=== PATIENT | female | born 1955 | race Caucasian/White ===

== ENCOUNTER 2017-06-03 17:16 | Emergency (ER) | payer MEDICAID ==
[~2017-06-03] VITALS: Ht 154.9 cm; Wt 55.0 kg
[~2017-06-03 17:16] MED LIST: LEVO150T8 PO; LEVO500T89 PO; MALA59LO4 TOP; OMEP20TA23 PO; PIP1KIT5 TP
[2017-06-03] MEDS ORDERED: GUAI237S46 PO (18:41)
[2017-06-03 18:45] VITALS: BP 95/69
== END 2017-06-03 18:46 | disposition home or self-care (01) ==
LOC: ER 17:16
DX: J44.1 Chronic obstructive pulmonary disease with (acute) exacerbation (principal); E11.9 Type 2 diabetes mellitus without complications; E78.00 Pure hypercholesterolemia, unspecified; G89.29 Other chronic pain; Z88.1 Allergy status to other antibiotic agents; Z88.2 Allergy status to sulfonamides; Z90.710 Acquired absence of both cervix and uterus; Z98.51 Tubal ligation status; Z98.890 Other specified postprocedural states
CPT/HCPCS: 71046; 99284

== ENCOUNTER 2017-06-16 19:07 | Emergency (ER) | payer MEDICAID ==
[~2017-06-16] VITALS: Ht 154.9 cm; Wt 57.3 kg
[2017-06-16 19:50] LABS: BASOPHILS # (AUTO) 0.2 X10'3 (0-0.2); BASOPHILS % (AUTO) 2.2 % (0-1); EOSINOPHILS # (AUTO) 0.2 X10'3 (0-0.9); EOSINOPHILS % (AUTO) 2.7 % (0-6); HEMATOCRIT 42.3 % (35.0-45.0); HEMOGLOBIN 14.8 g/dl (12.0-16.0); LYMPHOCYTES # (AUTO) 2.2 X10'3 (1.1-4.8); LYMPHOCYTES % (AUTO) 25.8 % (21-51); MEAN CORPUSCULAR HEMOGLOBIN 33.4 PG (27.0-31.0); MEAN CORPUSCULAR VOLUME 95.7 FL (78-98); MEAN PLATELET VOLUME 7.5 FL (7.4-10.4); MONOCYTES # (AUTO) 0.7 X10'3 (0-0.9); MONOCYTES % (AUTO) 7.9 % (2-12); NEUTROPHILS # (AUTO) 5.3 X10'3 (1.8-7.7); NEUTROPHILS % (AUTO) 61.4 % (42-75); PLATELET COUNT 259 X10'3 (140-440); RED BLOOD COUNT 4.42 X10'6 (4.20-5.60); RED CELL DISTRIBUTION WIDTH 14.1 % (11.5-14.5); WHITE BLOOD COUNT 8.7 X10'3 (4.5-11.0)
[2017-06-16 20:14] LABS: ALANINE AMINOTRANSFERASE 26 U/L (12-78); ALBUMIN 4.1 G/DL (3.4-5.0); ALBUMIN/GLOBULIN RATIO 1.2 (1.1-1.5); ALKALINE PHOSPHATASE 85 IU/L (46-116); ANION GAP 9 (8-16); ASPARTATE AMINO TRANSFERASE 19 U/L (10-37); BILIRUBIN,TOTAL 1.1 MG/DL (0.1-1.0); BLOOD UREA NITROGEN 16 MG/DL (7-18); BUN/CREATININE RATIO 17.8 (6.6-38.0); CALCIUM 9.2 MG/DL (8.5-10.1); CHLORIDE 103 MMOL/L (99-107); ETHANOL < 0.010 GM/DL (0.0-0.010); GLUCOSE 87 MG/DL (70-104); POTASSIUM 3.6 MMOL/L (3.5-5.1); SODIUM 141 MMOL/L (135-145); TOTAL CARBON DIOXIDE 28.8 MMOL/L (24-32); TOTAL PROTEIN 7.4 G/DL (6.4-8.2); eGFR 64 ML/MIN
[2017-06-16] MEDS ORDERED: levoTHYROXINE 75mcg tablet PO STA (21:35)
[2017-06-16 23:40] LABS: URINE HCG NEGATIVE (NEG)
[2017-06-16 23:44] LABS: CLARITY,URINE CLEAR (Clear); COLOR,URINE YELLOW (Yellow); GLUCOSE, URINE NEGATIVE (Neg); KETONES,URINE NEGATIVE (Neg); LEUKOCYTE ESTERASE ,URINE SMALL (Neg); NITRITES, URINE NEGATIVE (Neg); OCCULT BLOOD,URINE TRACE-LYSED (Neg); PROTEIN,URINE NEGATIVE (Neg); UROBILINOGEN,URINE 0.2 E.U/dL (0.2-1.0)
[2017-06-16 23:45] LABS: UA COLLECTION TYPE CLN CATCH MIDSTREAM
[2017-06-16 23:51] LABS: URINE AMPHETAMINE SCREEN POSITIVE (Neg); URINE BARBITUATE SCREEN NEGATIVE (Neg); URINE BENZODIAZEPINES SCREEN NEGATIVE (Neg); URINE CANNABINOID SCREEN NEGATIVE (Neg); URINE COCAINE SCREEN NEGATIVE (Neg); URINE METHADONE SCREEN NEGATIVE (Neg); URINE OPIATE SCREEN NEGATIVE (Neg); URINE PHENCYCLIDINE SCREEN NEGATIVE (Neg)
[2017-06-16 23:57] LABS: SQUAMOUS EPITHELIAL CELL,UR MODERATE /LPF (FEW)
[2017-06-16 23:58] LABS: BACTERIA,URINE FEW /HPF (Neg); RBC,URINE 0-2 /HPF (0-2); TRANSITIONAL EPI CELLS,URINE FEW /HPF
[2017-06-17] MEDS ORDERED: LEVO150T PO (01:43)
[2017-06-17 09:46] VITALS: BP 107/69
== END 2017-06-17 09:53 | disposition home or self-care (01) ==
LOC: ER 19:07
DX: F32.9 Major depressive disorder, single episode, unspecified (principal); E11.9 Type 2 diabetes mellitus without complications; E78.00 Pure hypercholesterolemia, unspecified; J44.9 Chronic obstructive pulmonary disease, unspecified; Z88.1 Allergy status to other antibiotic agents; Z88.2 Allergy status to sulfonamides; F17.210 Nicotine dependence, cigarettes, uncomplicated
CPT/HCPCS: 36415; 80053; 80305; 80320; 81001; 81025; 82948; 84443; 85025; 93005; 99285

== ENCOUNTER 2017-10-14 14:21 | Inpatient (IN) | payer MEDICAID ==
[~2017-10-14] VITALS: Ht 154.9 cm; Wt 56.8 kg
[~2017-10-14 14:21] MED LIST changes: +LEVO150T PO; -LEVO500T89 PO; -MALA59LO4 TOP; -OMEP20TA23 PO; -PIP1KIT5 TP
[2017-10-14] MEDS ORDERED: morphine 4 MG/ML inj SYRINge IV ONE (14:35)
[2017-10-14] MEDS ORDERED: ondansetron/PF 4mg/2ml inj IV ONE (14:35)
[2017-10-14 15:13] LABS: COLOR,URINE YELLOW (Yellow); GLUCOSE, URINE NEGATIVE (Neg); KETONES,URINE TRACE mg/dl (Neg); LEUKOCYTE ESTERASE ,URINE SMALL (Neg); NITRITES, URINE NEGATIVE (Neg); OCCULT BLOOD,URINE NEGATIVE (Neg); PROTEIN,URINE NEGATIVE (Neg)
[2017-10-14 15:15] LABS: HEMATOCRIT 44.5 % (35.0-45.0); HEMOGLOBIN 15.2 g/dl (12.0-16.0); MEAN CORPUSCULAR HEMOGLOBIN 33.3 PG (27.0-31.0); MEAN CORPUSCULAR HGB CONC 34.2 % (33.0-36.5); MEAN CORPUSCULAR VOLUME 97.3 FL (78-98); MEAN PLATELET VOLUME 7.8 FL (7.4-10.4); PLATELET COUNT 301 X10'3 (140-440); RED BLOOD COUNT 4.57 X10'6 (4.20-5.60); RED CELL DISTRIBUTION WIDTH 14.1 % (11.5-14.5)
[2017-10-14 15:18] LABS: WHITE BLOOD COUNT 25.4 X10'3 (4.5-11.0)
[2017-10-14 15:20] LABS: CLARITY,URINE SLIGHTLY CLOUDY (Clear); UA COLLECTION TYPE CLN CATCH MIDSTREAM
[2017-10-14 15:22] LABS: BACTERIA,URINE 2+ /HPF (Neg); HYALINE CASTS 0-3 /LPF (NEGATIVE); MUCUS STRANDS FEW /LPF (Neg); RBC,URINE NONE SEEN /HPF (0-2); SQUAMOUS EPITHELIAL CELL,UR FEW /LPF (FEW); WBC,URINE 0-4 /HPF (0-4)
[2017-10-14 15:29] LABS: TOTAL CELLS COUNTED 100
[2017-10-14 15:30] LABS: PLATELET ESTIMATE NORMAL
[2017-10-14] MEDS ORDERED: normal saline 1000ML IV soln IV ONE (15:30)
[2017-10-14 15:33] LABS: ALANINE AMINOTRANSFERASE 23 U/L (12-78); ALBUMIN 3.2 G/DL (3.4-5.0); ALBUMIN/GLOBULIN RATIO 0.9 (1.1-1.5); ALKALINE PHOSPHATASE 105 IU/L (46-116); ANION GAP 7 (8-16); ASPARTATE AMINO TRANSFERASE 17 U/L (10-37); BILIRUBIN,TOTAL 0.7 MG/DL (0.1-1.0); BLOOD UREA NITROGEN 14 MG/DL (7-18); BUN/CREATININE RATIO 18.4 (6.6-38.0); CALCIUM 8.3 MG/DL (8.5-10.1); CHLORIDE 109 MMOL/L (99-107); CREATININE 0.76 MG/DL (0.40-0.90); GLUCOSE 108 MG/DL (70-104); POTASSIUM 3.5 MMOL/L (3.5-5.1); SODIUM 146 MMOL/L (135-145); TOTAL CARBON DIOXIDE 29.7 MMOL/L (24-32); TOTAL PROTEIN 6.9 G/DL (6.4-8.2); eGFR 77 ML/MIN
[2017-10-14] MEDS ORDERED: iohexol 300mg/ml 100ml inj. ONE (15:49)
[2017-10-14 16:11] LABS: INR 0.9 INR; PARTIAL THROMBOPLASTIN TIME 26 SECONDS (22-32); PROTHROMBIN TIME 9.8 SECONDS (9.0-12.0)
[2017-10-14] MEDS ORDERED: acetaminophen 325mg tablet PO PRN ×2 (18:00)
[2017-10-14] MEDS ORDERED: acetaminophen 650mg rectal suppository RC PRN (18:00)
[2017-10-14] MEDS ORDERED: bisacodyl 10mg suppository rectal RC PRN (18:00)
[2017-10-14] MEDS ORDERED: diphenhydrAMINE 25mg capsule PO PRN (18:00)
[2017-10-14] MEDS ORDERED: diphenhydrAMINE 50 mg/ml inj IV PRN (18:00)
[2017-10-14] MEDS ORDERED: mag hydrox/Alum hydrox/simeth 30ml oral suspension PO PRN (18:00)
[2017-10-14] MEDS ORDERED: HYDROmorphone inj. 0.5 MG/0.5 ML DISP.SYRIN IV PRN ×2 (18:00)
[2017-10-14] MEDS ORDERED: HYDROcodone/acetaminophen 5mg/325mg tablet PO PRN (18:00)
[2017-10-14] MEDS ORDERED: magnesium hydroxide 30ml (MOM) UD suspension PO PRN (18:00)
[2017-10-14] MEDS ORDERED: morphine 4 MG/ML inj SYRINge IV PRN (18:00)
[2017-10-14] MEDS: morphine 4 MG/ML inj SYRINge IV PRN (18:12)
[2017-10-14 18:26] LABS: HEMOGLOBIN A1C 5.8 % (4.5-6.2)
[2017-10-14] MEDS ORDERED: normal saline 1000ml 1,000 ML IVB ONE (18:27)
[2017-10-14 18:33] LABS: MAGNESIUM 1.6 MG/DL (1.5-2.4); PHOSPHORUS 3.9 MG/DL (2.3-4.5)
[2017-10-14 18:40] LABS: AMYLASE 40 U/L (25-115); LIPASE 83 U/L (73-393)
[2017-10-14] MEDS: potassium Cl 20mEq in NS 1,000 ML IV SCH (19:14)
[2017-10-14] MEDS: docusate sod 100mg capsule PO SCH (20:00)
[2017-10-14] MEDS: CefTRIAXone/D5W-Rocephin 1gm 50 ML IV SCH (20:15)
[2017-10-14] MEDS: pantoprazole 40 MG vial IV SCH (20:16)
[2017-10-14] MEDS: heparin, porcine 5000 units/ml vial SQ SCH (20:16)
[2017-10-14] MEDS: ondansetron/PF 4mg/2ml inj IV PRN (20:16)
[2017-10-14] MEDS ORDERED: temazepam 15mg capsule PO PRN (21:00)
[2017-10-14 21:15] VITALS: BP 99/58
[2017-10-14 21:19] LABS: URINE AMPHETAMINE SCREEN NEGATIVE (Neg); URINE BARBITUATE SCREEN NEGATIVE (Neg); URINE BENZODIAZEPINES SCREEN NEGATIVE (Neg); URINE CANNABINOID SCREEN NEGATIVE (Neg); URINE COCAINE SCREEN NEGATIVE (Neg); URINE METHADONE SCREEN NEGATIVE (Neg); URINE OPIATE SCREEN POSITIVE (Neg); URINE PHENCYCLIDINE SCREEN NEGATIVE (Neg)
[2017-10-14] MEDS: metoclopramide 5 mg/ml inj IV PRN (21:59)
[2017-10-14 22:12] LABS: OCCULT BLOOD STOOL NEGATIVE (Neg)
[2017-10-14 23:00] VITALS: BP 108/62
[2017-10-14] MEDS: HYDROcodone/acetaminophen 10/325mg tab PO PRN (23:49)
[2017-10-15 03:00] VITALS: BP 92/53
[2017-10-15] MEDS: ondansetron/PF 4mg/2ml inj IV PRN ×2 (03:12→13:49)
[2017-10-15] MEDS: potassium Cl 20mEq in NS 1,000 ML IV SCH ×3 (03:57→16:11)
[2017-10-15] MEDS ORDERED: potassium Cl 20mEq in NS 1,000 ML IV ONE (04:50)
[2017-10-15] MEDS: HYDROcodone/acetaminophen 10/325mg tab PO PRN ×4 (05:59→20:10)
[2017-10-15 06:00] VITALS: BP 88/58
[2017-10-15] MEDS: metoclopramide 5 mg/ml inj IV PRN ×2 (06:34→20:29)
[2017-10-15] MEDS: levoTHYROXINE 75mcg tablet PO SCH (06:35)
[2017-10-15 07:13] LABS: BASOPHILS % (AUTO) 0.4 % (0-1); EOSINOPHILS # (AUTO) 0.2 X10'3 (0-0.9); EOSINOPHILS % (AUTO) 2.1 % (0-6); HEMATOCRIT 44.2 % (35.0-45.0); LYMPHOCYTES # (AUTO) 1.9 X10'3 (1.1-4.8); LYMPHOCYTES % (AUTO) 17.1 % (21-51); MEAN CORPUSCULAR HEMOGLOBIN 33.1 PG (27.0-31.0); MEAN CORPUSCULAR HGB CONC 33.9 % (33.0-36.5); MEAN CORPUSCULAR VOLUME 97.6 FL (78-98); MONOCYTES # (AUTO) 0.8 X10'3 (0-0.9); NEUTROPHILS # (AUTO) 8.3 X10'3 (1.8-7.7); NEUTROPHILS % (AUTO) 73.4 % (42-75); PLATELET COUNT 252 X10'3 (140-440); RED BLOOD COUNT 4.53 X10'6 (4.20-5.60); WHITE BLOOD COUNT 11.3 X10'3 (4.5-11.0)
[2017-10-15 07:32] LABS: ALANINE AMINOTRANSFERASE 15 U/L (12-78); ALBUMIN 2.6 G/DL (3.4-5.0); ALBUMIN/GLOBULIN RATIO 0.8 (1.1-1.5); ALKALINE PHOSPHATASE 69 IU/L (46-116); ANION GAP 10 (8-16); ASPARTATE AMINO TRANSFERASE 15 U/L (10-37); BILIRUBIN,TOTAL 0.5 MG/DL (0.1-1.0); BLOOD UREA NITROGEN 11 MG/DL (7-18); BUN/CREATININE RATIO 19.3 (6.6-38.0); CALCIUM 6.7 MG/DL (8.5-10.1); CHLORIDE 112 MMOL/L (99-107); CHOL/HDL RATIO 4.2 (0.00-4.99); CHOLESTEROL 139 MG/DL (0-200); CREATININE 0.57 MG/DL (0.40-0.90); GLUCOSE 110 MG/DL (70-104); HDL CHOLESTEROL 33 MG/DL (35-60); LDL CHOLESTEROL 72 MG/DL (50-100); POTASSIUM 3.8 MMOL/L (3.5-5.1); SODIUM 144 MMOL/L (135-145); TOTAL CARBON DIOXIDE 22.3 MMOL/L (24-32); TOTAL PROTEIN 5.7 G/DL (6.4-8.2); TRIGLYCERIDES 248 MG/DL (20-135); eGFR > 90 ML/MIN
[2017-10-15] MEDS: pantoprazole 40 MG vial IV SCH ×2 (07:53→20:03)
[2017-10-15] MEDS: CefTRIAXone/D5W-Rocephin 1gm 50 ML IV SCH ×2 (07:54→20:03)
[2017-10-15] MEDS: docusate sod 100mg capsule PO SCH ×2 (07:54→20:00)
[2017-10-15] MEDS: heparin, porcine 5000 units/ml vial SQ SCH ×2 (07:55→20:11)
[2017-10-15 11:00] VITALS: BP 97/60
[2017-10-15 11:15] LABS: C DIFF ANTIGEN NEGATIVE (NEGATIVE); C DIFF SPECIMEN=DIARRHEA? ACCEPTABLE; C DIFFICILE TOXINS A&B NEGATIVE (Neg)
[2017-10-15] MEDS: nicotine 21mg patch - 24 hr TD SCH (13:40)
[2017-10-15 15:00] VITALS: BP 94/53
[2017-10-15] MEDS: calcium carbonate/vitamin D3 tablet PO SCH (17:46)
[2017-10-15 19:00] VITALS: BP 95/49
[2017-10-15] MEDS: lactobacillus rhamnosus 10,000 MMU CELLS/CAPSULE PO SCH (20:09)
[2017-10-15] MEDS ORDERED: diphenoxylate/atropine tablet (Lomotil) PO PRN (22:45)
[2017-10-15 23:00] VITALS: BP 104/56
[2017-10-16] MEDS: chloestyramine/aspartame 4gm packet PO SCH ×2 (00:42→06:02)
[2017-10-16] MEDS: HYDROcodone/acetaminophen 10/325mg tab PO PRN (01:42)
[2017-10-16] MEDS: potassium Cl 20mEq in NS 1,000 ML IV SCH (01:44)
[2017-10-16] MEDS: ondansetron/PF 4mg/2ml inj IV PRN (02:56)
[2017-10-16 03:00] VITALS: BP 91/56
[2017-10-16] MEDS: morphine 4 MG/ML inj SYRINge IV PRN (03:54)
[2017-10-16] MEDS: metoclopramide 5 mg/ml inj IV PRN (04:00)
[2017-10-16 05:57] LABS: BASOPHILS # (AUTO) 0.1 X10'3 (0-0.2); BASOPHILS % (AUTO) 0.8 % (0-1); EOSINOPHILS # (AUTO) 0.2 X10'3 (0-0.9); HEMATOCRIT 36.9 % (35.0-45.0); HEMOGLOBIN 12.6 g/dl (12.0-16.0); LYMPHOCYTES # (AUTO) 0.8 X10'3 (1.1-4.8); LYMPHOCYTES % (AUTO) 7.9 % (21-51); MEAN CORPUSCULAR HEMOGLOBIN 33.3 PG (27.0-31.0); MEAN CORPUSCULAR HGB CONC 34.2 % (33.0-36.5); MEAN CORPUSCULAR VOLUME 97.6 FL (78-98); MEAN PLATELET VOLUME 7.9 FL (7.4-10.4); MONOCYTES # (AUTO) 0.8 X10'3 (0-0.9); MONOCYTES % (AUTO) 7.6 % (2-12); NEUTROPHILS # (AUTO) 8.1 X10'3 (1.8-7.7); NEUTROPHILS % (AUTO) 81.7 % (42-75); PLATELET COUNT 221 X10'3 (140-440); RED BLOOD COUNT 3.78 X10'6 (4.20-5.60); RED CELL DISTRIBUTION WIDTH 13.9 % (11.5-14.5); WHITE BLOOD COUNT 9.9 X10'3 (4.5-11.0)
[2017-10-16 06:29] LABS: ALANINE AMINOTRANSFERASE 15 U/L (12-78); ALBUMIN 2.4 G/DL (3.4-5.0); ALBUMIN/GLOBULIN RATIO 0.8 (1.1-1.5); ALKALINE PHOSPHATASE 64 IU/L (46-116); ANION GAP 12 (8-16); ASPARTATE AMINO TRANSFERASE 15 U/L (10-37); BILIRUBIN,TOTAL 0.3 MG/DL (0.1-1.0); BLOOD UREA NITROGEN 7 MG/DL (7-18); BUN/CREATININE RATIO 13.7 (6.6-38.0); CALCIUM 7.1 MG/DL (8.5-10.1); CHLORIDE 112 MMOL/L (99-107); CREATININE 0.51 MG/DL (0.40-0.90); GLUCOSE 96 MG/DL (70-104); POTASSIUM 3.6 MMOL/L (3.5-5.1); SODIUM 143 MMOL/L (135-145); TOTAL CARBON DIOXIDE 19.4 MMOL/L (24-32); TOTAL PROTEIN 5.3 G/DL (6.4-8.2); eGFR > 90 ML/MIN
[2017-10-16 07:22] VITALS: BP 84/41
[2017-10-16] MEDS: calcium carbonate/vitamin D3 tablet PO SCH (07:40)
[2017-10-16] MEDS: levoTHYROXINE 75mcg tablet PO SCH (07:40)
[2017-10-16] MEDS: lactobacillus rhamnosus 10,000 MMU CELLS/CAPSULE PO SCH (07:40)
[2017-10-16] MEDS: pantoprazole 40 MG vial IV SCH (07:40)
[2017-10-16] MEDS: nicotine 21mg patch - 24 hr TD SCH (07:40)
[2017-10-16] MEDS: CefTRIAXone/D5W-Rocephin 1gm 50 ML IV SCH (07:40)
[2017-10-16] MEDS: heparin, porcine 5000 units/ml vial SQ SCH (07:41)
[2017-10-16] MEDS: docusate sod 100mg capsule PO SCH (07:41)
[2017-10-16] MEDS ORDERED: normal saline 1000ml 1,000 ML IVB ONE (08:39)
[2017-10-16] MEDS ORDERED: HYDR50CA PO (09:49)
[2017-10-16] MEDS ORDERED: ACET-2119 PO (09:49)
[2017-10-16] MEDS ORDERED: PROM25TA14 PO (09:49)
[2017-10-16 11:00] VITALS: BP 100/56
[2017-10-16] MEDS ORDERED: chloestyramine/aspartame 4gm packet PO SCH (11:00)
== END 2017-10-16 14:05 | disposition home or self-care (01) | DRG 720 ==
LOC: ER 14:22 → ED HOLD 17:57 → EDBEDREQ 19:42 → PCU 3S 21:17
PROVIDERS: ADMIT Family Medicine; ATTEND Family Medicine
DX: A41.9 Sepsis, unspecified organism (principal); N39.0 Urinary tract infection, site not specified; J44.9 Chronic obstructive pulmonary disease, unspecified; R19.7 Diarrhea, unspecified; E11.9 Type 2 diabetes mellitus without complications; E78.00 Pure hypercholesterolemia, unspecified; E86.0 Dehydration; F17.210 Nicotine dependence, cigarettes, uncomplicated; K31.9 Disease of stomach and duodenum, unspecified; K40.90 Unilateral inguinal hernia, without obstruction or gangrene, not specified as recurrent; F32.9 Major depressive disorder, single episode, unspecified; G89.29 Other chronic pain; M19.90 Unspecified osteoarthritis, unspecified site; M54.9 Dorsalgia, unspecified; Z88.2 Allergy status to sulfonamides; Z90.710 Acquired absence of both cervix and uterus; Z88.1 Allergy status to other antibiotic agents; Z88.8 Allergy status to other drugs, medicaments and biological substances; Z79.899 Other long term (current) drug therapy; Z98.51 Tubal ligation status; Z79.4 Long term (current) use of insulin
CPT/HCPCS: 36415; 71045; 74177; 80053; 80061; 80305; 81001; 82150; 82272; 82948; 83036; 83605; 83690; 83735; 83880; 84100; 84145; 84443; 85025; 85610; 85730; 87040; 87045; 87046; 87070; 87088; 87324; 87449; 89055; 96361; 96374; 96375; 99285; A4620; A6250; C9113; J0696; J1644; J2270; J2405; J2765; J7030; Q9967

== ENCOUNTER 2017-10-22 22:37 | Emergency (ER) | payer MEDICAID ==
[~2017-10-22] VITALS: Ht 154.9 cm; Wt 59.1 kg
[~2017-10-22 22:37] MED LIST changes: +ACET-2119 PO; +HYDR50CA PO; -LEVO150T PO; +PROM25TA14 PO
[2017-10-23 01:48] LABS: ALANINE AMINOTRANSFERASE 32 U/L (12-78); ALBUMIN 2.6 G/DL (3.4-5.0); ALBUMIN/GLOBULIN RATIO 0.9 (1.1-1.5); ALKALINE PHOSPHATASE 74 IU/L (46-116); ANION GAP 11 (8-16); ASPARTATE AMINO TRANSFERASE 42 U/L (10-37); BILIRUBIN,TOTAL 0.5 MG/DL (0.1-1.0); BLOOD UREA NITROGEN 11 MG/DL (7-18); BUN/CREATININE RATIO 15.3 (6.6-38.0); CALCIUM 7.7 MG/DL (8.5-10.1); CHLORIDE 111 MMOL/L (99-107); CREATININE 0.72 MG/DL (0.40-0.90); GLUCOSE 76 MG/DL (70-104); MAGNESIUM 1.6 MG/DL (1.5-2.4); SODIUM 148 MMOL/L (135-145); TOTAL PROTEIN 5.5 G/DL (6.4-8.2); eGFR 82 ML/MIN
[2017-10-23 01:50] LABS: POTASSIUM 2.8 MMOL/L (3.5-5.1)
[2017-10-23 01:51] LABS: BASOPHILS # (AUTO) 0.2 X10'3 (0-0.2); BASOPHILS % (AUTO) 1.6 % (0-1); EOSINOPHILS # (AUTO) 0.6 X10'3 (0-0.9); EOSINOPHILS % (AUTO) 5.6 % (0-6); HEMATOCRIT 40.1 % (35.0-45.0); HEMOGLOBIN 13.5 g/dl (12.0-16.0); LYMPHOCYTES # (AUTO) 2.5 X10'3 (1.1-4.8); LYMPHOCYTES % (AUTO) 24.9 % (21-51); MEAN CORPUSCULAR HGB CONC 33.7 % (33.0-36.5); MEAN CORPUSCULAR VOLUME 97.8 FL (78-98); MEAN PLATELET VOLUME 7.8 FL (7.4-10.4); MONOCYTES # (AUTO) 0.7 X10'3 (0-0.9); MONOCYTES % (AUTO) 6.9 % (2-12); RED CELL DISTRIBUTION WIDTH 14.2 % (11.5-14.5); WHITE BLOOD COUNT 9.9 X10'3 (4.5-11.0)
[2017-10-23 02:17] LABS: PLATELET COUNT 216 X10'3 (140-440)
[2017-10-23] MEDS ORDERED: potassium Cl 20 mEq SR tablet PO STA (02:17)
[2017-10-23] MEDS ORDERED: POTA20TA19 PO (02:32)
[2017-10-23] MEDS ORDERED: HYDR25TA4 PO (02:32)
[2017-10-23 02:45] VITALS: BP 118/68
[2017-10-23] MEDS ORDERED: LEVO150T PO (03:16)
== END 2017-10-23 02:49 | disposition home or self-care (01) ==
LOC: ER 22:37
DX: R60.0 Localized edema (principal); E78.00 Pure hypercholesterolemia, unspecified; J44.9 Chronic obstructive pulmonary disease, unspecified; E11.9 Type 2 diabetes mellitus without complications; E03.9 Hypothyroidism, unspecified; F17.200 Nicotine dependence, unspecified, uncomplicated; F32.9 Major depressive disorder, single episode, unspecified; M19.90 Unspecified osteoarthritis, unspecified site; L40.9 Psoriasis, unspecified; Z90.710 Acquired absence of both cervix and uterus; Z88.1 Allergy status to other antibiotic agents; Z88.2 Allergy status to sulfonamides; Z79.2 Long term (current) use of antibiotics; Z79.899 Other long term (current) drug therapy
CPT/HCPCS: 36415; 71045; 80053; 83735; 83880; 84484; 85025; 93005; 99285

== ENCOUNTER 2018-02-13 13:44 | Emergency (ER) | payer MEDICAID ==
[~2018-02-13] VITALS: Ht 154.9 cm; Wt 57.0 kg
[~2018-02-13 13:44] MED LIST changes: +HYDR25TA4 PO; +LEVO150T PO
[2018-02-13 14:00] VITALS: BP 106/61
[2018-02-13] MEDS ORDERED: AZIT-72 PO (14:44)
[2018-02-13] MEDS ORDERED: ALBU2.5V12 NEB (14:44)
[2018-02-13] MEDS ORDERED: PRED20TA PO (14:44)
[2018-02-13] MEDS ORDERED: BENZ-16 PO (14:46)
== END 2018-02-13 15:09 | disposition home or self-care (01) ==
LOC: ER 13:44
DX: J20.9 Acute bronchitis, unspecified (principal); J44.9 Chronic obstructive pulmonary disease, unspecified; E78.00 Pure hypercholesterolemia, unspecified; E11.9 Type 2 diabetes mellitus without complications; E03.9 Hypothyroidism, unspecified; M19.90 Unspecified osteoarthritis, unspecified site; G89.29 Other chronic pain; Z90.710 Acquired absence of both cervix and uterus; Z98.51 Tubal ligation status; Z98.890 Other specified postprocedural states; Z88.2 Allergy status to sulfonamides; Z88.1 Allergy status to other antibiotic agents; Z79.2 Long term (current) use of antibiotics; Z79.899 Other long term (current) drug therapy
CPT/HCPCS: 71046; 93005; 99284

== ENCOUNTER 2018-06-06 13:53 | Inpatient (IN) | payer MEDICAID | END 2018-06-10 14:50 | disposition home or self-care (01) | LOC: SUR 3N 06-07 04:30 → ER 13:53 → ED HOLD 15:49 ==

== ENCOUNTER 2019-09-29 11:13 | Day surgery (SDC) | payer MEDICAID ==
[~2019-09-29] VITALS: Ht 154.9 cm; Wt 60.1 kg
[~2019-09-29 11:13] MED LIST changes: -ACET-2119 PO; +ALBU18HF2 INH; +ALBU2.5V12 NEB; -HYDR25TA4 PO; -HYDR50CA PO; -LEVO150T PO; +LEVO750T46 PO; +PANT40TA4 PO; -PROM25TA14 PO; +SERT-153 PO; +ZOLP5TAB2 PO
[2019-09-29] MEDS ORDERED: normal saline 1000ml 1,000 ML IV ONE (11:30)
[2019-09-29 11:42] VITALS: BP 108/47
[2019-09-29] MEDS ORDERED: heparin sodium, porcine/PF 100unit/ml 5ML syringe ONE (11:59)
[2019-09-29] MEDS ORDERED: fentaNYL/PF 50MCG/1 ML 2ML syringe ONE (12:00)
[2019-09-29] MEDS ORDERED: midazolam 2 mg/2 ml injection ONE (12:00)
[2019-09-29] MEDS ORDERED: LIDOcaine 1%/PF 5ML 10 MG/ML VIAL ONE (12:00)
[2019-09-29 12:10] LABS: BASOPHILS % (AUTO) 0.1 % (0-1); EOSINOPHILS # (AUTO) 0.2 X10'3 (0-0.9); EOSINOPHILS % (AUTO) 10.3 % (0-6); HEMATOCRIT 32.4 % (35.0-45.0); HEMOGLOBIN 10.7 g/dl (12.0-16.0); LYMPHOCYTES # (AUTO) 1.3 X10'3 (1.1-4.8); LYMPHOCYTES % (AUTO) 57.7 % (21-51); MEAN CORPUSCULAR HEMOGLOBIN 32.7 PG (27.0-31.0); MEAN CORPUSCULAR VOLUME 99.2 FL (78-98); MEAN PLATELET VOLUME 7.3 FL (7.4-10.4); MONOCYTES % (AUTO) 1.9 % (2-12); NEUTROPHILS # (AUTO) 0.7 X10'3 (1.8-7.7); PLATELET COUNT 83 X10'3 (140-440); RED BLOOD COUNT 3.27 X10'6 (4.20-5.60); RED CELL DISTRIBUTION WIDTH 13.8 % (11.5-14.5); WHITE BLOOD COUNT 2.2 X10'3 (4.5-11.0)
[2019-09-29] MEDS ORDERED: HYDR-4353 PO (12:13)
[2019-09-29] MEDS ORDERED: DOCU100C40 PO (12:13)
[2019-09-29] MEDS ORDERED: LIDO5CRE2 TP (12:13)
[2019-09-29] MEDS ORDERED: FURO-150 PO (12:13)
[2019-09-29] MEDS ORDERED: ALBU90AE2 IH (12:13)
[2019-09-29] MEDS ORDERED: LORA-269 PO (12:13)
[2019-09-29] MEDS ORDERED: ONDA8TAB6 PO (12:13)
[2019-09-29] MEDS ORDERED: POTA20PA40 PO (12:13)
[2019-09-29] MEDS ORDERED: LEVO137T2 PO (12:13)
[2019-09-29] MEDS ORDERED: MORP-92 PO (12:13)
[2019-09-29] MEDS ORDERED: normal saline 1000ml 1,000 ML IV SCH (12:34)
[2019-09-29 13:09] LABS: PLATELET ESTIMATE DECREASED; TOTAL CELLS COUNTED 100
[2019-09-29 13:25] VITALS: BP 104/72
[2019-09-29 13:49] VITALS: BP 103/72
[2019-09-29 14:00] VITALS: BP 100/68
[2019-09-29 14:15] VITALS: BP 94/62
[2019-09-29 14:37] VITALS: BP 116/76
[2019-09-29] MEDS ORDERED: ondansetron/PF 4mg/2ml inj ONE (14:48)
[2019-09-29] MEDS ORDERED: ondansetron/PF 4mg/2ml inj IV ONE (14:50)
== END 2019-09-29 15:30 | disposition home or self-care (01) ==
LOC: SSTAY O 11:13
PROVIDERS: ATTEND Radiology Diagnostic Radiology
DX: C34.01 Malignant neoplasm of right main bronchus (principal); J44.9 Chronic obstructive pulmonary disease, unspecified; E03.9 Hypothyroidism, unspecified; K21.9 Gastro-esophageal reflux disease without esophagitis; Z88.2 Allergy status to sulfonamides; Z88.8 Allergy status to other drugs, medicaments and biological substances; Z88.1 Allergy status to other antibiotic agents; Z79.899 Other long term (current) drug therapy
CPT/HCPCS: 36415; 36561; 76937; 77001; 85025; 99152; 99153; C1769; C1788; C1894; J1642; J2250; J2405; J3010; J7030

== ENCOUNTER 2019-10-01 15:32 | Emergency (ER) | payer MEDICAID ==
[~2019-10-01] VITALS: Ht 154.9 cm; Wt 59.1 kg
[~2019-10-01 15:32] MED LIST changes: -ALBU2.5V12 NEB; +ALBU90AE2 IH; +DOCU100C40 PO; +FURO-150 PO; +HYDR-4353 PO; +LEVO137T2 PO; -LEVO150T8 PO; -LEVO750T46 PO; +LIDO5CRE2 TP; +LORA-269 PO; +MORP-92 PO; +ONDA8TAB6 PO; -PANT40TA4 PO; +POTA20PA40 PO; -ZOLP5TAB2 PO
[2019-10-01 16:14] LABS: BASOPHILS % (AUTO) 0.1 % (0-1); EOSINOPHILS # (AUTO) 0.2 X10'3 (0-0.9); LYMPHOCYTES # (AUTO) 1.4 X10'3 (1.1-4.8); MONOCYTES # (AUTO) 0.1 X10'3 (0-0.9); NEUTROPHILS # (AUTO) 0.2 X10'3 (1.8-7.7); WHITE BLOOD COUNT 1.9 X10'3 (4.5-11.0)
[2019-10-01 16:16] LABS: EOSINOPHILS % (AUTO) 10.3 % (0-6); HEMATOCRIT 30.5 % (35.0-45.0); LYMPHOCYTES % (AUTO) 72.7 % (21-51); MEAN CORPUSCULAR HGB CONC 32.6 g/dL (33.0-36.5); MEAN CORPUSCULAR VOLUME 98.1 FL (78-98); MEAN PLATELET VOLUME 7.5 FL (7.4-10.4); NEUTROPHILS % (AUTO) 12.9 % (42-75); RED BLOOD COUNT 3.11 X10'6 (4.20-5.60)
[2019-10-01 16:27] LABS: PLATELET COUNT 46 X10'3 (140-440)
[2019-10-01 16:30] LABS: ALANINE AMINOTRANSFERASE 10 U/L (12-78); ALBUMIN 2.6 G/DL (3.4-5.0); ALBUMIN/GLOBULIN RATIO 0.8 (1.1-1.5); ALKALINE PHOSPHATASE 67 IU/L (46-116); ANION GAP 4 (8-16); ASPARTATE AMINO TRANSFERASE 15 U/L (10-37); BILIRUBIN,TOTAL 0.2 MG/DL (0.1-1.0); BLOOD UREA NITROGEN 9 MG/DL (7-18); BUN/CREATININE RATIO 18.8 (6.6-38.0); CALCIUM 8.8 MG/DL (8.5-10.1); CHLORIDE 106 MMOL/L (99-107); CREATININE 0.48 MG/DL (0.40-0.90); GLUCOSE 115 MG/DL (70-104); POTASSIUM 3.5 MMOL/L (3.5-5.1); SODIUM 145 MMOL/L (135-145); TOTAL CARBON DIOXIDE 34.8 MMOL/L (24-32); eGFR > 90 ML/MIN
[2019-10-01 17:31] LABS: ANISOCYTOSIS FEW; PLATELET ESTIMATE DECREASED; SMUDGE CELLS 1+; TOTAL CELLS COUNTED 100
[2019-10-01 18:28] VITALS: BP 104/44
== END 2019-10-01 18:30 | disposition home or self-care (01) ==
LOC: ER 15:32
DX: Z48.89 Encounter for other specified surgical aftercare (principal); D69.6 Thrombocytopenia, unspecified; E78.00 Pure hypercholesterolemia, unspecified; J44.9 Chronic obstructive pulmonary disease, unspecified; E11.9 Type 2 diabetes mellitus without complications; E03.9 Hypothyroidism, unspecified; M19.90 Unspecified osteoarthritis, unspecified site; G89.29 Other chronic pain; F32.9 Major depressive disorder, single episode, unspecified; Z90.710 Acquired absence of both cervix and uterus; Z98.51 Tubal ligation status; Z98.890 Other specified postprocedural states; Z88.2 Allergy status to sulfonamides; Z88.1 Allergy status to other antibiotic agents; Z79.899 Other long term (current) drug therapy
CPT/HCPCS: 36415; 80053; 84145; 85025; 99283